=== PATIENT | female | born 1935 | race Caucasian/White ===

== ENCOUNTER → 2017-05-17 | Outpatient (CLI) | payer OTHER ==
[~2017-05-17] MED LIST: ALTOPREV20 MG PO; BENICAR20 MG PO; BILBERRY1 EAC1 PO; CALCIUM 600 +1 EAC1 PO; COREG PO; GLUCOSAMINE &1 EACH PO; MULTIVITAMIN W1 EACH PO; NATURAL VITA100 UNIT PO; VERAPAMIL E.R240 M1 PO; [UNRECOGNIZED DRUG - OTHER] PO
== END ==
LOC: RAD 04:21
DX: Z12.31 Encounter for screening mammogram for malignant neoplasm of breast (principal)

== ENCOUNTER → 2018-05-18 | Outpatient (CLI) | payer OTHER | LOC: RAD 03:19 | DX: Z12.31 Encounter for screening mammogram for malignant neoplasm of breast (principal) ==

== ENCOUNTER → 2019-05-21 | Outpatient (CLI) | payer OTHER | LOC: RAD 03:43 | DX: Z12.31 Encounter for screening mammogram for malignant neoplasm of breast (principal) ==

== ENCOUNTER → 2020-05-29 | Outpatient (CLI) | payer OTHER | LOC: BC 13:03 | DX: Z12.31 Encounter for screening mammogram for malignant neoplasm of breast (principal) ==

== ENCOUNTER → 2021-06-01 | Outpatient (CLI) | payer OTHER | LOC: BC 11:06 | DX: Z12.31 Encounter for screening mammogram for malignant neoplasm of breast (principal) ==